=== PATIENT | female | born 1980 | race Caucasian/White ===

== ENCOUNTER → 2017-07-11 | Outpatient (CLI) | payer OTHER ==
[2017-07-11 09:08] LABS: ABSOLUTE EOSINOPHILS # (AUTO) 0.1 10^3/uL (0.0-0.6); ABSOLUTE LYMPHOCYTES (AUTO) 2.2 10^3/uL (0.5-4.7); ABSOLUTE MONOCYTES (AUTO) 0.6 10^3/uL (0.1-1.4); ABSOLUTE NEUT (AUTO) 3.9 10^3/uL (1.7-8.2); BASOPHILS % (AUTO) 0.3 % (0-2); EOSINOPHILS % (AUTO) 1.9 % (0-6); HEMATOCRIT 41.2 % (36.0-47.0); HEMOGLOBIN 14.4 g/dL (12.0-15.5); LYMPHOCYTES % (AUTO) 32.1 % (13-45); MEAN CORPUSCULAR HEMOGLOBIN 30.3 pg (27.0-33.4); MEAN CORPUSCULAR HGB CONC 34.9 g/dL (32.0-36.0); MEAN CORPUSCULAR VOLUME 87 fl (80-97); MONOCYTES % (AUTO) 8.4 % (3-13); RED BLOOD COUNT 4.74 10^6/uL (3.72-5.28); RED CELL DISTRIBUTION WIDTH 12.8 % (11.5-14.0); SEGMENTED NEUTROPHILS % (AUTO) 57.3 % (42-78); WHITE BLOOD COUNT 6.8 10^3/uL (4.0-10.5)
[2017-07-11 09:31] LABS: ALANINE AMINOTRANSFERASE 32 U/L (9-52); ALBUMIN 4.4 g/dL (3.5-5.0); ALKALINE PHOSPHATASE 66 U/L (38-126); ANION GAP 12 (5-19); ASPARTATE AMINO TRANSFERASE 26 U/L (14-36); BILIRUBIN,DIRECT 0.4 mg/dL (0.0-0.4); BILIRUBIN,TOTAL 0.5 mg/dL (0.2-1.3); BLOOD UREA NITROGEN 11 mg/dL (7-20); CALCIUM 10.1 mg/dL (8.4-10.2); CARBON DIOXIDE 27 mmol/L (22-30); CHLORIDE 99 mmol/L (98-107); CHOLESTEROL 179.23 mg/dL (0-200); CREATININE RESULT 0.74 mg/dL (0.52-1.25); Direct HDL 43 mg/dL (>40); GLUCOSE 100 mg/dL (75-110); POTASSIUM 3.9 mmol/L (3.6-5.0); SODIUM 137.9 mmol/L (137-145); TOTAL PROTEIN 7.3 g/dL (6.3-8.2); TRIGLYCERIDES 295 mg/dL (<150)
[2017-07-11 09:43] LABS: DIRECT LDL 102 mg/dL (<100)
== END ==
LOC: OD 08:08
DX: E11.8 Type 2 diabetes mellitus with unspecified complications (principal)
CPT/HCPCS: 36415; 80053; 80061; 83036; 84443; 85025

== ENCOUNTER → 2017-12-18 | Outpatient (CLI) | payer OTHER ==
[2017-12-18 11:25] LABS: ALANINE AMINOTRANSFERASE 38 U/L (9-52); ALBUMIN 4.6 g/dL (3.5-5.0); ALKALINE PHOSPHATASE 57 U/L (38-126); ANION GAP 10 (5-19); ASPARTATE AMINO TRANSFERASE 40 U/L (14-36); BILIRUBIN,DIRECT 0.2 mg/dL (0.0-0.4); BILIRUBIN,TOTAL 0.5 mg/dL (0.2-1.3); BLOOD UREA NITROGEN 10 mg/dL (7-20); CALCIUM 10.6 mg/dL (8.4-10.2); CARBON DIOXIDE 28 mmol/L (22-30); CHLORIDE 99 mmol/L (98-107); CHOLESTEROL 268.18 mg/dL (0-200); GLUCOSE 110 mg/dL (75-110); POTASSIUM 4.5 mmol/L (3.6-5.0); SODIUM 137.4 mmol/L (137-145); TOTAL PROTEIN 7.3 g/dL (6.3-8.2)
[2017-12-18 11:37] LABS: DIRECT LDL 124 mg/dL (<100)
[2017-12-18 11:47] LABS: TRIGLYCERIDES 634 mg/dL (<150)
== END ==
LOC: CCC 09:30
DX: E10.8 Type 1 diabetes mellitus with unspecified complications (principal)
CPT/HCPCS: 36415; 80053; 80061; 83036

== ENCOUNTER → 2018-02-14 | Outpatient (CLI) | payer OTHER ==
[2018-02-14 09:56] LABS: ABSOLUTE EOSINOPHILS # (AUTO) 0.1 10^3/uL (0.0-0.6); ABSOLUTE LYMPHOCYTES (AUTO) 2.6 10^3/uL (0.5-4.7); ABSOLUTE MONOCYTES (AUTO) 0.6 10^3/uL (0.1-1.4); ABSOLUTE NEUT (AUTO) 6.9 10^3/uL (1.7-8.2); BASOPHILS % (AUTO) 0.4 % (0-2); EOSINOPHILS % (AUTO) 1.3 % (0-6); HEMATOCRIT 41.5 % (36.0-47.0); HEMOGLOBIN 14.3 g/dL (12.0-15.5); LYMPHOCYTES % (AUTO) 25.5 % (13-45); MEAN CORPUSCULAR HEMOGLOBIN 30.1 pg (27.0-33.4); MEAN CORPUSCULAR HGB CONC 34.3 g/dL (32.0-36.0); MEAN CORPUSCULAR VOLUME 88 fl (80-97); MONOCYTES % (AUTO) 6.2 % (3-13); PLATELET COUNT 342 10^3/uL (150-450); RED BLOOD COUNT 4.73 10^6/uL (3.72-5.28); RED CELL DISTRIBUTION WIDTH 12.8 % (11.5-14.0); SEGMENTED NEUTROPHILS % (AUTO) 66.6 % (42-78); TOTAL CELLS COUNTED % (AUTO) 100 %; WHITE BLOOD COUNT 10.3 10^3/uL (4.0-10.5)
[2018-02-14 10:24] LABS: CALCIUM 10.3 mg/dL (8.4-10.2); CHOLESTEROL 136.63 mg/dL (0-200); TRIGLYCERIDES 242 mg/dL (<150)
[2018-02-14 10:35] LABS: DIRECT LDL 67 mg/dL (<100)
[2018-02-14 10:40] LABS: VLDL CHOLESTEROL 48.4 mg/dL (10-31)
== END ==
LOC: CCC 09:14
DX: E83.52 Hypercalcemia (principal); E11.8 Type 2 diabetes mellitus with unspecified complications; E78.5 Hyperlipidemia, unspecified
CPT/HCPCS: 36415; 80061; 82310; 83036; 83735; 84100; 84443; 85025

== ENCOUNTER → 2018-03-13 | Outpatient (CLI) | payer OTHER ==
[2018-03-13 16:46] LABS: FREE T3 3.31 pg/mL (2.77-5.27); FREE T4 (FREE THYROXINE) 0.88 ng/dL (0.78-2.19)
[2018-03-13 16:59] LABS: THYROID STIMULATING HORMONE 1.07 uIU/mL (0.47-4.68)
== END ==
LOC: OD 14:33
DX: E03.9 Hypothyroidism, unspecified (principal); M25.50 Pain in unspecified joint
CPT/HCPCS: 36415; 82550; 84436; 84439; 84443; 84481

== ENCOUNTER → 2018-06-01 | Outpatient (CLI) | payer OTHER | LOC: OD 08:48 | DX: E11.8 Type 2 diabetes mellitus with unspecified complications (principal) | CPT/HCPCS: 36415; 83036 ==

== ENCOUNTER → 2018-10-23 | Outpatient (CLI) | payer OTHER ==
--- NOTE | 2018-10-23 12:47 | RADIOLOGY REPORT (SQ) ---
EXAM DESCRIPTION: FOOT LEFT COMPLETE COMPLETED DATE/TIME: 10/23/2018 12:01 pm REASON FOR STUDY: PAIN IN LEFT TOE; NO TRAUMA E11.8 TYPE 2 DIABETES MELLITUS WITH UNSPECIFIED COMPL ICATION M79.675 PAIN IN LEFT TOE(S) COMPARISON: None. NUMBER OF VIEWS: Three views. TECHNIQUE: AP, lateral and oblique radiographic images acquired of the left foot. LIMITATIONS: None. FINDINGS: MINERALIZATION: Normal. BONES: No acute fracture or dislocation. No worrisome bone lesions. JOINTS: No effusions. SOFT TISSUES: No soft tissue swelling. No foreign body. OTHER: No other significant finding. IMPRESSION: 1. NEGATIVE STUDY OF THE LEFT FOOT. TECHNICAL DOCUMENTATION: JOB ID: [id number] [employer]- All Rights Reserved Reading location - IP/workstation name: [email or web address]
[2018-10-23 12:58] LABS: ANION GAP 14 (5-19); BLOOD UREA NITROGEN 8 mg/dL (7-20); CARBON DIOXIDE 22 mmol/L (22-30); CHLORIDE 104 mmol/L (98-107); GLUCOSE 149 mg/dL (75-110); POTASSIUM 4.5 mmol/L (3.6-5.0); URIC ACID 4.5 mg/dL (2.5-7.0)
[2018-10-23 14:01] LABS: FOLATE 8.53 ng/mL (>2.76)
== END ==
LOC: CCC 11:35
DX: E11.8 Type 2 diabetes mellitus with unspecified complications (principal); M79.675 Pain in left toe(s)
CPT/HCPCS: 36415; 80048; 82607; 82746; 83036; 84550

== ENCOUNTER → 2018-11-15 | Outpatient (CLI) | payer OTHER ==
[2018-11-15 10:42] LABS: ABSOLUTE EOSINOPHILS # (AUTO) 0.2 10^3/uL (0.0-0.6); ABSOLUTE LYMPHOCYTES (AUTO) 2.6 10^3/uL (0.5-4.7); ABSOLUTE MONOCYTES (AUTO) 0.6 10^3/uL (0.1-1.4); ABSOLUTE NEUT (AUTO) 6.3 10^3/uL (1.7-8.2); BASOPHILS % (AUTO) 0.4 % (0-2); EOSINOPHILS % (AUTO) 2.2 % (0-6); HEMATOCRIT 40.2 % (36.0-47.0); HEMOGLOBIN 13.9 g/dL (12.0-15.5); LYMPHOCYTES % (AUTO) 26.8 % (13-45); MEAN CORPUSCULAR HEMOGLOBIN 29.6 pg (27.0-33.4); MEAN CORPUSCULAR HGB CONC 34.6 g/dL (32.0-36.0); MEAN CORPUSCULAR VOLUME 86 fl (80-97); MONOCYTES % (AUTO) 6.5 % (3-13); PLATELET COUNT 359 10^3/uL (150-450); RED CELL DISTRIBUTION WIDTH 12.7 % (11.5-14.0); SEGMENTED NEUTROPHILS % (AUTO) 64.1 % (42-78); TOTAL CELLS COUNTED % (AUTO) 100 %; WHITE BLOOD COUNT 9.9 10^3/uL (4.0-10.5)
[2018-11-15 11:26] LABS: ERYTHROCYTE SEDIMENTATION RATE 11 mm/hr (0-20)
[2018-11-17 07:56] LABS: CYCLIC CITRUL PEPTIDE IGG/A AB 8 units (0-19)
== END ==
LOC: CCC 10:03
DX: M26.621 Arthralgia of right temporomandibular joint (principal)
CPT/HCPCS: 36415; 85025; 85652; 86038; 86140; 86200; 86225; 86430

== ENCOUNTER → 2019-01-18 | Outpatient (CLI) | payer OTHER ==
--- NOTE | 2019-01-18 13:42 | RADIOLOGY REPORT (SQ) ---
EXAM DESCRIPTION: HIP LEFT AP/LATERAL COMPLETED DATE/TIME: 01/18/2019 1:34 pm REASON FOR STUDY: R05 COUGH M25.50 PAIN IN UNSPECIFIED JOINT M25.50 PAIN IN UNSPECIFIED JOINT R05 COUGH COMPARISON: None. NUMBER OF VIEWS: Two views. TECHNIQUE: AP pelvis and additional frog-leg view of the left hip. LIMITATIONS: None. FINDINGS: MINERALIZATION: Normal. LEFT HIP: No fracture or dislocation. No worrisome bone lesions. No significant joint space narrowi ng. Minimal calcifications/ossification along the acetabular labrum. RIGHT HIP: No fracture or dislocation. No worrisome bone lesions. PUBIS AND ISCHIUM: No fracture. PELVIS: No fracture. SACRUM: No fracture or dislocation. No worrisome bone lesions. LOWER LUMBAR SPINE: No fracture or dislocation. No worrisome bone lesions. No significant disc disea se. SOFT TISSUES: No findings. OTHER: No other significant finding. IMPRESSION: No acute findings. TECHNICAL DOCUMENTATION: JOB ID: [id number] [employer]- All Rights Reserved Reading location - IP/workstation name: [email or web address]
--- NOTE | 2019-01-18 13:42 | RADIOLOGY REPORT (SQ) ---
EXAM DESCRIPTION: CHEST 2 VIEWS COMPLETED DATE/TIME: 01/18/2019 1:34 pm REASON FOR STUDY: R05 COUGH COMPARISON: AP chest 03/05/2016 EXAM PARAMETERS: NUMBER OF VIEWS: two views TECHNIQUE: Digital Frontal and Lateral radiographic views of the chest acquired. RADIATION DOSE: NA LIMITATIONS: none FINDINGS: LUNGS AND PLEURA: No opacities, masses or pneumothorax. No pleural effusion. MEDIASTINUM AND HILAR STRUCTURES: No masses or contour abnormalities. HEART AND VASCULAR STRUCTURES: Heart normal size. No evidence for failure. BONES: No acute findings. HARDWARE: None in the chest. OTHER: No other significant finding. IMPRESSION: NO ACUTE RADIOGRAPHIC FINDING IN THE CHEST. TECHNICAL DOCUMENTATION: JOB ID: [id number] [employer]- All Rights Reserved Reading location - IP/workstation name: [email or web address]
== END ==
LOC: EDBD 13:08 → RAD 13:08
DX: M25.50 Pain in unspecified joint (principal); R05 Cough; Z72.0 Tobacco use; E11.9 Type 2 diabetes mellitus without complications
CPT/HCPCS: 71046

== ENCOUNTER 2019-01-22 08:50 | Emergency (ER) | payer SELFPAY ==
[2019-01-22] MEDS ORDERED: KETOROLAC TROMETHAMINE INJ/PF 30 MG/1 ML SDV IM ONE (09:43)
--- NOTE | 2019-01-22 09:47 | ER Document Report ---
HPI - HPI Time Seen by Provider: 01/22/19 09:32 Pain Level: 5 Notes: Patient is a 38-year-old female with no significant past medical history who presents to the ED complaining of left lower back pain x3-4 weeks and left upper buttock pain without obvious injury. Patient states that she does bend at the waist a lot for her job. Movement helps. Rising from sitting position worsens. Patient states that bending twisting of the trunk make the pains worse as well. Pain will occ radiate from the left low back to the buttock. She is eating and drinking without any difficulties. She is urinating normally and having normal bowel movements. She has not had any injections or procedures to his lower back. Denies any IV drug abuse. No other concerns or complaints. Denies any headache, fever, head injury, neck pain, changes in vision/speech/mentation/hearing, URI, sore throat, chest pain, palpitations, syncope, cough, shortness of breath, wheeze, dyspnea, abdominal pain, nausea/vomiting/diarrhea, urinary retention, dysuria, hematuria, loss of control of bowel or bladder, numbness/tingling, saddle anesthesia, muscle paralysis/weakness, or rash. - ROS Systems Reviewed and Negative: Yes All other systems reviewed and negative - REPRODUCTIVE Reproductive: DENIES: : Past Medical History - Social History Smoking Status: Current Every Day Smoker Family History: Arthritis, CAD, COPD, CVA, DM, Hyperlipidemia, Hypertension, Malignancy, Thyroid Disfunction, Other - Parents with cardiac issues. Patient has suicidal ideation: No Patient has homicidal ideation: No - Past Medical History Cardiac Medical History: Reports: Hx Hypertension Denies: Hx Heart Attack Pulmonary Medical History: Denies: Hx Asthma, Hx Bronchitis, Hx COPD, Hx Pneumonia, Hx Tuberculosis Neurological Medical History: Reports: Hx Migraine. Denies: Hx Seizures Endocrine Medical History: Reports: Hx Diabetes Mellitus Type 2 Renal/ Medical History: Reports: Hx Ectopic , Hx Kidney Stones, Hx Ovarian Cysts. Denies: Hx Peritoneal Dialysis GI Medical History: Reports: Hx Colonoscopy Musculoskeletal Medical History: Reports Hx Arthritis, Reports Hx Musculoskeletal Trauma Psychiatric Medical History: Reports: Hx Anxiety Past Surgical History: Reports: Hx Section, Hx Oral Surgery - wisdom teeth, Hx Tubal Ligation. Denies: Hx Hysterectomy - Immunizations Immunizations up to date: Yes Hx Diphtheria, Pertussis, Tetanus Vaccination: Yes Vertical Provider Document - CONSTITUTIONAL Agree With Documented VS: Yes Notes: PHYSICAL EXAMINATION: GENERAL: Well-appearing, well-nourished and in no acute distress. LUNGS: Breath sounds clear to auscultation bilaterally and equal. No wheezes rales or rhonchi. HEART: Regular rate and rhythm without murmurs, rubs, gallops. ABDOMEN: Soft, nontender, nondistended abdomen. No guarding, no rebound. Normal bowel sounds present. No CVA tenderness bilaterally. No pulsatile mass Musculoskeletal: LE's b/l: FROM to passive/active. Strength 5+/5. No deficits noted. No bony tenderness of extremities. Back: FROM to passive/active. Strength 5+/5. No vertebral point tenderness, stepoffs, or deformities. No other bony tenderness, erythema, swelling, or ecchymosis. SLR negative b/l. + mild tenderness to the left L-paraspinal mm. Mild spasming. + left SI jt tenderness. No foot drop Extremities: No cyanosis, clubbing, or edema b/l. Peripheral pulses 2+. Capillary refill less than 2 seconds. NEUROLOGICAL: Normal speech, normal gait. Normal sensory, motor exams. Reflexes 2+ b/l. PSYCH: Normal mood, normal affect. SKIN: Warm, Dry, normal turgor, no rashes or lesions noted. - INFECTION CONTROL TRAVEL OUTSIDE OF THE [place] IN LAST 30 DAYS: No Course - Re-evaluation Re-evalutation: 01/22/19 09:45 Patient is an afebrile, well-hydrated, 38-year-old female who presents to the ED with left low back pain and lt buttock pain, suspect SI. Vitals are acceptable. PE is otherwise unremarkable for any focal neurological deficits. X-ray was unremarkable for any acute pathology of the left hip performed a few days ago by her PCM. Patient was given Toradol. She has no significant tachycardia, tachypnea, or hypoxia. She is nontoxic-appearing and is tolerating p.o. without difficulties. There are no signs of infection. No other red flag symptoms noted. No other labs or imaging warranted at this time based on H&P. Low suspicion for any meningitis, fracture, expanding/ruptured AAA, cauda equina syndrome, epidural mass lesion/abscess, herniated disc causing severe spinal stenosis, or other systemic infection at this time. Patient is aware that this condition can change from initial presentation and that she needs monitor symptoms closely for any acute changes. I will send her home with a prescription for flexeril. Conservative measures otherwise for symptoms. Recheck with your PCM in 3-5 days. Consider consult with orthopedic/physical therapy. Return to the ED with any worsening/concerning symptoms otherwise as reviewed discharge. Patient is in agreement. - Vital Signs Vital signs: Temp Pulse Resp BP Pulse Ox 99.3 F 99 18 139/92 H 98 01/22/19 09:03 01/22/19 09:03 01/22/19 09:03 01/22/19 09:03 01/22/19 09:03 Discharge - Discharge Clinical Impression: Pain of left sacroiliac joint Low back pain Qualifiers: Chronicity: acute Back pain laterality: left Sciatica presence: without sciatica Qualified Code(s): M54.5 - Low back pain Condition: Stable Disposition: HOME, SELF-CARE Instructions: Low Back Pain ([facility]), Stretching Exercises for the Back ([facility]) Additional Instructions: Rest, Ice Tylenol/ibuprofen as needed Light stretches daily Strength exercises as able Moist heat and massage may help F/u with your PCP in 3-5 days for a recheck Consider consult(s) with Orthopedics/physical therapy for ongoing/worsening symptoms Return to the ED with any worsening symptoms and/or development of fever, headache, chest pain, palpitations, syncope, shortness of breath, trouble breathing, abdominal pain, n/v/d, blood in stool/urine, loss of control of bowel/bladder, urinary retention, muscle weakness/paralysis, saddle anesthesia, numbness/tingling, or other worsening symptoms that are concerning to you. Prescriptions: Cyclobenzaprine HCl [Flexeril 10 mg Tablet] 10 mg PO TIDP PRN #15 tab PRN Reason: Forms: Elevated Blood Pressure, Smoking Cessation Education Referrals: [facility] [Primary Care Provider] - Follow up as needed [facility] [Provider Group] - Follow up as needed
[2019-01-22 10:28] VITALS: BP 133/85
== END 2019-01-22 10:25 | disposition home or self-care (01) ==
LOC: ER 08:50
DX: M53.3 Sacrococcygeal disorders, not elsewhere classified (principal); M54.5 Low back pain; F17.200 Nicotine dependence, unspecified, uncomplicated; X50.1XXA Overexertion from prolonged static or awkward postures, initial encounter; Y99.0 Civilian activity done for income or pay; I10 Essential (primary) hypertension
CPT/HCPCS: 99283; 96372; J1885

== ENCOUNTER 2019-02-18 01:15 | Emergency (ER) | payer OTHER ==
[2019-02-18] MEDS ORDERED: ASPIRIN 81 MG TABLET, CHEWABLE PO ONE (03:05)
[2019-02-18 03:41] LABS: ABSOLUTE EOSINOPHILS # (AUTO) 0.2 10^3/uL (0.0-0.6); ABSOLUTE MONOCYTES (AUTO) 0.6 10^3/uL (0.1-1.4); ABSOLUTE NEUT (AUTO) 5.2 10^3/uL (1.7-8.2); BASOPHILS % (AUTO) 0.5 % (0-2); HEMATOCRIT 38.1 % (36.0-47.0); HEMOGLOBIN 13.3 g/dL (12.0-15.5); LYMPHOCYTES % (AUTO) 24.6 % (13-45); MEAN CORPUSCULAR HEMOGLOBIN 29.7 pg (27.0-33.4); MEAN CORPUSCULAR VOLUME 85 fl (80-97); MONOCYTES % (AUTO) 7.4 % (3-13); PLATELET COUNT 324 10^3/uL (150-450); RED BLOOD COUNT 4.48 10^6/uL (3.72-5.28); RED CELL DISTRIBUTION WIDTH 13.2 % (11.5-14.0); SEGMENTED NEUTROPHILS % (AUTO) 65.5 % (42-78); TOTAL CELLS COUNTED % (AUTO) 100 %
[2019-02-18 03:43] LABS: INTERNATIONAL RATION (INR) 0.86; PROTHROMBIN TIME 12.2 SEC (11.4-15.4)
--- NOTE | 2019-02-18 04:01 | RADIOLOGY REPORT (SQ) ---
EXAM DESCRIPTION: XR CHEST 1 VIEW COMPLETED DATE/TME: 02/18/2019 03:05 CLINICAL HISTORY: 38 years, Female, CP Comparison: None FINDINGS: No focal lung consolidation. No pleural effusion. No pneumothorax. Cardiac and mediastinal silhouette is unremarkable. No acute osseous abnormality. Soft tissues are unremarkable. IMPRESSION: No acute findings. No focal lung consolidation.
[2019-02-18 04:05] LABS: ALANINE AMINOTRANSFERASE 24 U/L (9-52); ALBUMIN 4.1 g/dL (3.5-5.0); ALKALINE PHOSPHATASE 57 U/L (38-126); ANION GAP 12 (5-19); ASPARTATE AMINO TRANSFERASE 25 U/L (14-36); BILIRUBIN,DIRECT 0.3 mg/dL (0.0-0.4); BILIRUBIN,TOTAL 0.3 mg/dL (0.2-1.3); BLOOD UREA NITROGEN 13 mg/dL (7-20); CARBON DIOXIDE 24 mmol/L (22-30); CHLORIDE 103 mmol/L (98-107); CREATINE KINASE 145 U/L (30-135); GLUCOSE 194 mg/dL (75-110); POTASSIUM 3.8 mmol/L (3.6-5.0); SODIUM 139.4 mmol/L (137-145); TOTAL PROTEIN 6.7 g/dL (6.3-8.2)
[2019-02-18 04:16] LABS: CREATINE KINASE MB 0.99 ng/mL (<4.55)
[2019-02-18 04:17] LABS: TROPONIN I < 0.012 ng/mL
--- NOTE | 2019-02-18 07:00 | EKG REPORT ---
SEVERITY:- NORMAL ECG - SINUS RHYTHM : Confirmed by: Jan Duncan 18-Feb-2019 07:00:33
--- NOTE | 2019-02-18 07:08 | ER Document Report ---
ED General - General Chief Complaint: Chest Pain Stated Complaint: CHEST PAIN Time Seen by Provider: 02/18/19 03:04 Primary Care Provider: JEANNINE DEXTER MD [Primary Care Provider] - Follow up as needed Notes: Patient is a 38-year-old female presents to the emergency department for pain in the center of her chest radiating to her left jaw and left shoulder. Patient states she awoke this evening to use the restroom when she was walking back to bed she noted sharp pain in the center of her chest and radiating to her left jaw and left shoulder. Patient states she was very concerned which is why she presents to the emergency room. Patient currently states that the pain is gone. Patient states she has had a generalized cough and congestion but is denying that the pain is increased upon deep palpation or deep inspiration. Past medical history: Diabetes, hypertension, hyperlipidemia Medications: Metformin, glipizide, atorvastatin, metoprolol, losartan, HCTZ, tramadol, naproxen, gabapentin Allergies: Sulfa, codeine Surgical history: Tubal ligation TRAVEL OUTSIDE OF THE [place] IN LAST 30 DAYS: No - Related Data Allergies/Adverse Reactions: codeine [Codeine] Allergy (Verified 01/22/19 08:53) Sulfa (Sulfonamide Antibiotics) Allergy (Verified 01/22/19 08:53) Past Medical History - General Information source: Patient - Social History Smoking Status: Current Every Day Smoker Family History: Arthritis, CAD, COPD, CVA, DM, Hyperlipidemia, Hypertension, Malignancy, Thyroid Disfunction, Other - Parents with cardiac issues. Patient has suicidal ideation: No Patient has homicidal ideation: No - Past Medical History Cardiac Medical History: Reports: Hx Hypertension Denies: Hx Heart Attack Pulmonary Medical History: Denies: Hx Asthma, Hx Bronchitis, Hx COPD, Hx Pneumonia, Hx Tuberculosis Neurological Medical History: Reports: Hx Migraine. Denies: Hx Seizures Endocrine Medical History: Reports: Hx Diabetes Mellitus Type 2 Renal/ Medical History: Reports: Hx Ectopic , Hx Kidney Stones, Hx Ovarian Cysts. Denies: Hx Peritoneal Dialysis GI Medical History: Reports: Hx Colonoscopy Musculoskeletal Medical History: Reports Hx Arthritis, Reports Hx Musculoskeletal Trauma Psychiatric Medical History: Reports: Hx Anxiety Past Surgical History: Reports: Hx Section, Hx Oral Surgery - wisdom teeth, Hx Tubal Ligation. Denies: Hx Hysterectomy - Immunizations Immunizations up to date: Yes Hx Diphtheria, Pertussis, Tetanus Vaccination: Yes Review of Systems - Review of Systems Constitutional: No symptoms reported EENT: No symptoms reported Cardiovascular: See HPI Respiratory: No symptoms reported Gastrointestinal: No symptoms reported Genitourinary: No symptoms reported Female Genitourinary: No symptoms reported Musculoskeletal: No symptoms reported Skin: No symptoms reported Hematologic/Lymphatic: No symptoms reported Neurological/Psychological: No symptoms reported Physical Exam - Vital signs Vitals: Temp Pulse Resp BP Pulse Ox 98.6 F 85 16 146/86 H 97 02/18/19 01:02/18/19 01:02/18/19 01:02/18/19 01:02/18/19 01:31 - Notes Notes: GENERAL: Alert, interacts well. No acute distress. HEAD: Normocephalic, atraumatic. EYES: Pupils equal, round, and reactive to light. Extraocular movements intact. ENT: Oral mucosa moist, tongue midline. NECK: Full range of motion. Supple. Trachea midline. LUNGS: Clear to auscultation bilaterally, no wheezes, rales, or rhonchi. No respiratory distress. Chest: No crepitus felt, no erythema or ecchymosis noted anterior posterior chest wall. HEART: Regular rate and rhythm. No murmur ABDOMEN: Soft, non-tender. Non-distended. Bowel sounds present in all 4 quadrants. EXTREMITIES: Moves all 4 extremities spontaneously. No edema, normal radial and dorsalis pedis pulses bilaterally. No cyanosis. BACK: no cervical, thoracic, lumbar midline tenderness. No saddle anesthesia, normal distal neurovascular exam. NEUROLOGICAL: Alert and oriented x3. Normal speech. cranial nerves II through XII grossly intact PSYCH: Normal affect, normal mood. SKIN: Warm, dry, normal turgor. No rashes or lesions noted. Course - Re-evaluation Re-evalutation: Initially patient is denying that her chest pain increases on deep inspiration or palpation. Upon reexamination after initial blood work patient states "now that I think about it when you touched it, it did make my chest hurt more." Upon reexamination patient continues without crepitus, erythema, ecchymosis no lucian anterior posterior chest wall but now stating that the pain is reproducible on deep palpation in the center of her chest. Patient states without deep palpation or deep inspiration she has no pain to include in her left arm or left shoulder. Patient CBC is within normal limits, no signs of electrolyte abnormalities, patient has had negative delta troponins. Patient's EKG shows a sinus rhythm at a rate of 83, QTc 480, no signs of ST segment elevations or depressions noted. Patient's chest x-ray reveals no signs of pneumonia, pneumothorax, rib fracture. Patient's initial heart score was calculated to be 3 now that her pain is reproducible upon deep palpation and inspiration I believe this to be muscular skeletal in nature. Patient has remained chest pain-free the entire duration of her stay in the emergency department. Discussed close follow-up with primary care provider and cardiology. Patient voices understanding. - Vital Signs Vital signs: Temp Pulse Resp BP Pulse Ox 98.4 F 85 19 118/71 96 02/18/19 06:00 02/18/19 01:31 02/18/19 06:04 02/18/19 06:04 02/18/19 06:04 - Laboratory Result Diagrams: 02/18/19 03:26 02/18/19 03:26 Laboratory results interpreted by me: 02/18/19 03:26 Glucose 194 H Creatine Kinase 145 H Discharge - Discharge Clinical Impression: Chest wall pain Condition: Stable Disposition: HOME, SELF-CARE Instructions: Chest Pain of Unclear Cause ([facility]), Chest Wall Pain ([facility]) Additional Instructions: As we discussed you have been seen and treated in the emergency department for your chest pain. Your workup is negative. Due to your chest pain increasing upon deep palpation and inspiration I feel as though this could be musculosk eletal in nature. Please make sure you follow-up with your primary care provider in the next 24-48 hours. I have also provided phone numbers for cardiology for continued care. Please return to the emergency room should your chest pain return or have any other concerning symptoms. Forms: Return to Work Referrals: JEANNINE DEXTER MD [Primary Care Provider] - Follow up as needed JOSE ARMANDO TOLEDO MD [ACTIVE STAFF] - Follow up as needed
[2019-02-18 07:15] VITALS: BP 119/64
== END 2019-02-18 07:17 | disposition home or self-care (01) ==
LOC: ER 01:15
DX: R07.89 Other chest pain (principal); R68.84 Jaw pain; M25.512 Pain in left shoulder; R05 Cough; E78.5 Hyperlipidemia, unspecified; I10 Essential (primary) hypertension; M19.90 Unspecified osteoarthritis, unspecified site; E11.9 Type 2 diabetes mellitus without complications; Z79.84 Long term (current) use of oral hypoglycemic drugs; Z79.899 Other long term (current) drug therapy; Z79.891 Long term (current) use of opiate analgesic; Z79.1 Long term (current) use of non-steroidal anti-inflammatories (NSAID); Z88.2 Allergy status to sulfonamides; Z88.5 Allergy status to narcotic agent
CPT/HCPCS: 36415; 71045; 80053; 82550; 82553; 84484; 85025; 85610; 93005; 93010; 99284

== ENCOUNTER → 2019-02-25 | Outpatient (CLI) | payer OTHER ==
[2019-02-25 17:17] LABS: INTERNATIONAL RATION (INR) 0.91; PROTHROMBIN TIME 12.7 SEC (11.4-15.4)
[2019-02-25 17:18] LABS: PARTIAL THROMBOPLASTIN TIME 28.5 SEC (23.5-35.8)
== END ==
LOC: CCC 15:03
DX: N92.0 Excessive and frequent menstruation with regular cycle (principal)
CPT/HCPCS: 36415; 85610; 85730

== ENCOUNTER → 2019-03-05 | Outpatient (CLI) | payer OTHER ==
[~2019-03-05] MED LIST: REGADENOSON INJ 0.4 MG/5 ML DISP.SYRIN IV ONE
--- NOTE | 2019-03-06 12:29 | RADIOLOGY REPORT ---
STRESS TEST REPORT PATIENT NAME: TERI HOBBS ROOM#: DATE OF SERVICE: 03/05/2019 AGE: 39Y ORDER#: [id number] REFERRING MD: PROCEDURE PERFORMED: Rest/stress single-isotope Cardiolite SPECT imaging with IV Lexiscan stress and gated SPECT imaging. INDICATION: For assessment of chest pains. CLINICAL HISTORY: This is a 39-year-old female with no known coronary artery disease but has 4 significant coronary artery risk factors, now presenting with chest pains. SUMMARY OF FINDINGS/IMPRESSION: The patient received IV Lexiscan 0.4 mg infused over 10 seconds. The resting heart rate was 85 bpm and increased to 121 bpm at the end of infusion. The resting blood pressure was 137/84 and increased to 161/79 at end infusion. The patient had symptoms of chest tightness, feeling hot, and nauseous. The resting 12-lead EKG showed normal sinus rhythm at 85 bpm with nonspecific inferior ST changes in leads II, III, aVF and lateral wall V4 to V6. At the end of infusion no further ST changes were noted. Myocardial perfusion imaging was performed at rest, 60 minutes following the injection of 12.71 mCi of Cardiolite. Ten seconds after the IV Lexiscan injection the patient was then injected with 36.1 mCi of Cardiolite and flushed. Gated post-stress tomographic imaging was performed 60 minutes after stress. FINDINGS: The overall quality of the study is fair. The left ventricular cavity is noted to be normal in size on both the rest and stress studies. There is no evidence of abnormal transient ischemic dilatation of the left ventricle. SPECT images showed no evidence of IV Lexiscan-induced reversible ischemia and no fixed perfusion defect. Gated SPECT imaging showed normal motion contraction of all LV segments. The left ventricular ejection fraction was calculated to be 52%. The TID ratio was 1.05. IMPRESSION: Myocardial perfusion imaging is normal. There is no evidence of any IV Lexiscan-induced reversible ischemia. There is no evidence of any fixed perfusion defect. Overall left ventricular systolic function was normal at 52%, and there were no regional wall motion abnormalities seen. No prior studies for comparison. INTERPRETING PHYSICIAN: SHIRAZ GAMBOA M.D. /: [id number] TT: 1157 ID: [id number] /: [id number] TD: 56 JOB: [id number] cc:SHIRAZ GAMBOA M.D. [facility], > MTDD
== END ==
LOC: RAD 06:00
DX: R07.9 Chest pain, unspecified (principal); I10 Essential (primary) hypertension; E78.5 Hyperlipidemia, unspecified; E11.9 Type 2 diabetes mellitus without complications
CPT/HCPCS: 93017; 78452; A9500; J2785; Q9969

== ENCOUNTER → 2019-03-06 | Outpatient (CLI) | payer OTHER ==
--- NOTE | 2019-03-06 17:53 | XCELERA REPORT ---
[address] [address] Transthoracic Echocardiogram Report Name: TERI HOBBS Age: 39 yrs Gender: Female : 1980 Patient Status: Outpatient Patient Location: Study Date: 03/06/2019 02:13 PM Height: 65 in Weight: 185 lb BSA: 1.9 m2 Procedure: A complete two-dimensional transthoracic echocardiogram was performed (2D, M-mode, spectral and color flow Doppler). The study was technically adequate with some images being suboptimal in quality. Reason For Study: CP Ordering Physician: [facility] Performed By: James Aguilar Interpretation Summary The left ventricular ejection fraction is normal. There is mild concentric left ventricular hypertrophy. The left ventricle is grossly normal size. Doppler measurements suggest pseudonormalized left ventricular relaxation, which is associated with grade II/IV or mild to moderate diastolic dysfunction Wall motion cannot be accurately commented on, but no definite regional wall motion abnormalities noted. The right ventricular systolic function is normal. Borderline left atrial enlargement. The right atrium is normal. There is a trace to mild amount of mitral regurgitation There is no mitral valve stenosis. No aortic regurgitation is present. There is no aortic valve stenosis There is no tricuspid stenosis. There is a trace or physiologic amount of tricuspid regurgitation The aortic root is not well visualized but is probably normal size. The inferior vena cava appeared normal and decreased < 50% with respiration (RAP 10-15 mmHg) Minimal pericardial effusion. MMode/2D Measurements & Calculations RVDd: 2.3 cm LVIDd: 5.1 cm FS: 33.2 % Ao root diam: 2.8 cm IVSd: 0.95 cm LVIDs: 3.4 cm EDV(Teich): 125.4 ml Ao root area: 6.3 cm2 LVPWd: 0.86 cm ESV(Teich): 48.3 ml LA dimension: 3.6 cm EF(Teich): 61.5 % Doppler Measurements & Calculations MV E max jose: MV P1/2t max jose: Ao V2 max: LV V1 max P.6 cm/sec 81.4 cm/sec 97.2 cm/sec 2.5 mmHg MV A max ojse: MV P1/2t: 56.5 msec Ao max P.8 mmHg LV V1 max: 43.9 cm/sec MVA(P1/2t): 3.9 cm2 78.5 cm/sec MV E/A: 1.6 MV dec slope: LV dP/dt: 9088 mmHg/s 422.3 cm/sec2 MV dec time: 0.25 sec PA V2 max: TR max jose: MV P1/2t-pr_phl: 75.2 cm/sec 252.5 cm/sec 56.5 msec PA max P.3 mmHgTR max P.5 mmHg Left Ventricle The left ventricle is grossly normal size. There is mild concentric left ventricular hypertrophy. The left ventricular ejection fraction is normal. Doppler measurements suggest pseudonormalized left ventricular relaxation, which is associated with grade II/IV or mild to moderate diastolic dysfunction. Wall motion cannot be accurately commented on, but no definite regional wall motion abnormalities noted. Right Ventricle The right ventricle is grossly normal size. There is normal right ventricular wall thickness. The right ventricular systolic function is normal. Atria The right atrium is normal. Borderline left atrial enlargement. Interarterial septum not well visualized and not well dopplered. Cannot comment on ASD/PFO presence. Mitral Valve The mitral valve is grossly normal. There is no mitral valve stenosis. There is a trace to mild amount of mitral regurgitation. Aortic Valve The aortic valve is grossly normal. There is no aortic valve stenosis. No aortic regurgitation is present. Tricuspid Valve The tricuspid valve is not well visualized, but is grossly normal. There is no tricuspid stenosis. There is a trace or physiologic amount of tricuspid regurgitation. Pulmonic Valve The pulmonic valve is not well visualized. Great Vessels The aortic root is not well visualized but is probably normal size. The inferior vena cava appeared normal and decreased < 50% with respiration (RAP 10-15 mmHg). Effusions Minimal pericardial effusion. : [facility] > Jan Duncan
== END ==
LOC: SP 13:57
DX: R07.9 Chest pain, unspecified (principal)
CPT/HCPCS: 93306

== ENCOUNTER → 2019-03-20 | Outpatient (CLI) | payer OTHER ==
[2019-03-20 11:07] LABS: CHOLESTEROL 122.13 mg/dL (0-200); TRIGLYCERIDES 245 mg/dL (<150)
[2019-03-20 11:18] LABS: DIRECT LDL 60 mg/dL (<100)
== END ==
LOC: CCC 09:05
DX: E78.5 Hyperlipidemia, unspecified (principal)
CPT/HCPCS: 36415; 80061

== ENCOUNTER 2019-04-02 20:01 | Emergency (ER) | payer OTHER ==
[2019-04-02] MEDS ORDERED: OXYCODONE-ACETAMINOPHEN 5-325 MG TABLET PO ONE (22:26)
[2019-04-02] MEDS ORDERED: ONDANSETRON 4 MG TAB.RAPDIS PO ONE (22:26)
[2019-04-02] MEDS ORDERED: NORMAL SALINE 1000 ML 1,000 ML IV ONE (22:27)
--- NOTE | 2019-04-02 22:29 | ER Document Report ---
ED Medical Screen (RME) - General Chief Complaint: Chest Pain Stated Complaint: CHEST PAIN Time Seen by Provider: 04/02/19 22:26 [facility]: [facility] [Primary Care Provider] - Follow up as needed Notes: 39-year-old female chief complaint of pain in the epigastric area (she points), fever of 101 at home, and multiple episodes of vomiting today. Denies diarrhea, flank pain, chest pain, shortness of breath. Denies abdominal surgeries. TRAVEL OUTSIDE OF THE [place] IN LAST 30 DAYS: No - Related Data Allergies/Adverse Reactions: codeine [Codeine] Allergy (Verified 01/22/19 08:53) Sulfa (Sulfonamide Antibiotics) Allergy (Verified 01/22/19 08:53) Past Medical History - Social History Frequency of alcohol use: None - Past Medical History Cardiac Medical History: Reports: Hx Hypertension Denies: Hx Heart Attack Pulmonary Medical History: Denies: Hx Asthma, Hx Bronchitis, Hx COPD, Hx Pneumonia, Hx Tuberculosis Neurological Medical History: Reports: Hx Migraine. Denies: Hx Seizures Endocrine Medical History: Reports: Hx Diabetes Mellitus Type 2 Renal/ Medical History: Reports: Hx Ectopic , Hx Kidney Stones, Hx Ovarian Cysts. Denies: Hx Peritoneal Dialysis GI Medical History: Reports: Hx Colonoscopy Musculoskeltal Medical History: Reports Hx Arthritis, Reports Hx Musculoskeletal Trauma Psychiatric Medical History: Reports: Hx Anxiety Past Surgical History: Reports: Hx Section, Hx Oral Surgery - wisdom teeth, Hx Tubal Ligation. Denies: Hx Hysterectomy - Immunizations Immunizations up to date: Yes Hx Diphtheria, Pertussis, Tetanus Vaccination: Yes Physical Exam - Vital signs Vitals: Temp Pulse Resp BP Pulse Ox 98.9 F 79 20 135/90 H 97 04/02/19 21:09 04/02/19 21:09 04/02/19 21:09 04/02/19 21:09 04/02/19 21:09 - Abdominal Tenderness: Tender - Tender in the epigastric area, remaining abdomen is benign Course - Re-evaluation Re-evalutation: Patient with epigastric tenderness, reported fever, multiple episode of vomiting. Patient also states that she has had a lot of sick symptoms and abdominal discomfort after eating multiple times recently. As result also obtaining ultrasound. I have greeted and performed a rapid initial assessment of this patient. A comprehensive ED assessment and evaluation of the patient, analysis of test results and completion of the medical decision making process will be conducted by additional ED providers. - Vital Signs Vital signs: Temp Pulse Resp BP Pulse Ox 98.9 F 79 20 135/90 H 97 04/02/19 21:09 04/02/19 21:09 04/02/19 21:09 04/02/19 21:09 04/02/19 21:09 Doctor's Discharge - Discharge Referrals: [facility] [Primary Care Provider] - Follow up as needed
--- NOTE | 2019-04-02 22:32 | EKG REPORT ---
SEVERITY:- ABNORMAL ECG - SINUS RHYTHM LEFT VENTRICULAR HYPERTROPHY BORDERLINE T ABNORMALITIES, INFERIOR LEADS : Confirmed by: Camryn Carlson MD 02-Apr-2019 22:32:27
--- NOTE | 2019-04-02 23:43 | RADIOLOGY REPORT (SQ) ---
EXAM DESCRIPTION: US ABDOMEN LIMITED COMPLETED DATE/TME: 04/02/2019 22:27 CLINICAL HISTORY: 39 years, Female, epigastric pain, fever, vomiting COMPARISON: None. TECHNIQUE: Sonographic evaluation of the abdomen was performed. LIMITATIONS: None. FINDINGS: The visualized portions of the pancreatic head and body appear normal in echogenicity. Abdominal aortic measurements are as follows: Proximal abdominal aorta: 1.9 cm Mid abdominal aorta: 1.5 cm Distal abdominal aorta: 0.9 cm Visualized portions of the IVC appear normal. The liver is diffusely echogenic measuring 17.6 cm in length. No focal liver lesions are appreciated. Antegrade flow is documented within the main portal vein. Gallbladder wall thickness measures 1 mm. Common bile duct diameter is 3 mm. No gallstones. Sonographic Scott's sign was negative. Right kidney measures 11.1 x 5.8 x 6.1 cm in size. It is normal in echogenicity. No hydronephrosis. IMPRESSION: No acute sonographic abnormality. Echogenic liver, suggestive of hepatic steatosis. copyright 2010 [employer]- All Rights Reserved
[2019-04-03 00:13] LABS: ABSOLUTE EOSINOPHILS # (AUTO) 0.2 10^3/uL (0.0-0.6); ABSOLUTE LYMPHOCYTES (AUTO) 2.1 10^3/uL (0.5-4.7); ABSOLUTE MONOCYTES (AUTO) 0.6 10^3/uL (0.1-1.4); ABSOLUTE NEUT (AUTO) 4.1 10^3/uL (1.7-8.2); BASOPHILS % (AUTO) 0.5 % (0-2); EOSINOPHILS % (AUTO) 2.2 % (0-6); HEMATOCRIT 40.5 % (36.0-47.0); HEMOGLOBIN 13.7 g/dL (12.0-15.5); MEAN CORPUSCULAR HEMOGLOBIN 28.9 pg (27.0-33.4); MEAN CORPUSCULAR HGB CONC 33.8 g/dL (32.0-36.0); MEAN CORPUSCULAR VOLUME 86 fl (80-97); MONOCYTES % (AUTO) 8.8 % (3-13); PLATELET COUNT 323 10^3/uL (150-450); RED BLOOD COUNT 4.73 10^6/uL (3.72-5.28); RED CELL DISTRIBUTION WIDTH 13.2 % (11.5-14.0); SEGMENTED NEUTROPHILS % (AUTO) 58.5 % (42-78); TOTAL CELLS COUNTED % (AUTO) 100 %
[2019-04-03 00:36] LABS: APPEARANCE,URINE SLIGHTLY-CLOUDY; BILIRUBIN,URINE NEGATIVE (NEGATIVE); COLOR,URINE YELLOW; GLUCOSE, URINE NEGATIVE (NEGATIVE); KETONES,URINE NEGATIVE (NEGATIVE); LEUKOCYTE ESTERASE,URINE NEGATIVE (NEGATIVE); NITRITE,URINE NEGATIVE (NEGATIVE); PROTEIN,URINE NEGATIVE (NEGATIVE); URINE SPECIFIC GRAVITY 1.013; UROBILINOGEN,URINE NEGATIVE mg/dL (<2.0)
[2019-04-03 00:44] LABS: ALANINE AMINOTRANSFERASE 41 U/L (9-52); ALBUMIN 4.4 g/dL (3.5-5.0); ALKALINE PHOSPHATASE 60 U/L (38-126); ANION GAP 12 (5-19); ASPARTATE AMINO TRANSFERASE 30 U/L (14-36); BILIRUBIN,DIRECT 0.2 mg/dL (0.0-0.4); BILIRUBIN,TOTAL 0.5 mg/dL (0.2-1.3); BLOOD UREA NITROGEN 8 mg/dL (7-20); CALCIUM 10.3 mg/dL (8.4-10.2); CARBON DIOXIDE 30 mmol/L (22-30); CHLORIDE 97 mmol/L (98-107); GLUCOSE 122 mg/dL (75-110); LIPASE 89.4 U/L (23-300); POTASSIUM 3.5 mmol/L (3.6-5.0); SODIUM 138.7 mmol/L (137-145); TOTAL PROTEIN 7.3 g/dL (6.3-8.2)
--- NOTE | 2019-04-03 01:13 | ER Document Report ---
ED General - General TRAVEL OUTSIDE OF THE [place] IN LAST 30 DAYS: No <ROSALIE DAVIS - Last Filed: 04/03/19 05:00> <VIKTORIYA MCKEON - Last Filed: 04/03/19 14:10> - General Chief Complaint: Chest Pain Stated Complaint: CHEST PAIN Time Seen by Provider: 04/02/19 22:26 Primary Care Provider: [facility] [Primary Care Provider] - Follow up as needed Notes: Patient is a pleasant 39-year-old female presents with complaint of headache, neck stiffness, body aches, nausea vomiting, and fever. Symptoms started yesterday. 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 She does not remember any of the recently being sick. She has some chest tightness. She says Monday she had a tick pulled off her. Is behind the shoulder. She has not noticed any redness or swelling from where the tick bite was. No confusion. She has no other complaints at this time. (ROSALIE DAVIS) - Related Data Allergies/Adverse Reactions: codeine [Codeine] Allergy (Verified 01/22/19 08:53) Sulfa (Sulfonamide Antibiotics) Allergy (Verified 01/22/19 08:53) Past Medical History - Social History Smoking Status: Former Smoker Frequency of alcohol use: None Drug Abuse: None Family History: Arthritis, CAD, COPD, CVA, DM, Hyperlipidemia, Hypertension, Malignancy, Thyroid Disfunction, Other - Parents with cardiac issues. Patient has suicidal ideation: No Patient has homicidal ideation: No - Past Medical History Cardiac Medical History: Reports: Hx Hypertension Denies: Hx Heart Attack Pulmonary Medical History: Denies: Hx Asthma, Hx Bronchitis, Hx COPD, Hx Pneumonia, Hx Tuberculosis Neurological Medical History: Reports: Hx Migraine. Denies: Hx Seizures Endocrine Medical History: Reports: Hx Diabetes Mellitus Type 2 Renal/ Medical History: Reports: Hx Ectopic , Hx Kidney Stones, Hx Ovarian Cysts. Denies: Hx Peritoneal Dialysis GI Medical History: Reports: Hx Colonoscopy Musculoskeletal Medical History: Reports Hx Arthritis, Reports Hx Musculoskeletal Trauma Psychiatric Medical History: Reports: Hx Anxiety Past Surgical History: Reports: Hx Section, Hx Oral Surgery - wisdom teeth, Hx Tubal Ligation. Denies: Hx Hysterectomy - Immunizations Immunizations up to date: Yes Hx Diphtheria, Pertussis, Tetanus Vaccination: Yes <ROSALIE DAVIS - Last Filed: 04/03/19 05:00> Review of Systems <ROSALIE DAVIS - Last Filed: 04/03/19 05:00> - Review of Systems Notes: My Normal Review Basic REVIEW OF SYSTEMS: CONSTITUTIONAL : Denies fever, chills, or sweats. Denies recent illness. EENT: Denies eye, ear, throat, or mouth pain or symptoms. Denies nasal or sinus congestion. CARDIOVASCULAR: Denies chest pain. RESPIRATORY: Denies cough, cold, or chest congestion. Denies shortness of breath, difficulty breathing, or wheezing. GASTROINTESTINAL: Denies abdominal pain. Denies nausea, vomiting, or diarrhea. GENITOURINARY: Denies difficulty urinating, painful urination, burning, frequency, or blood in urine. MUSCULOSKELETAL: Neck pain and stiffness. SKIN: Denies rash or skin lesions. NEUROLOGICAL: Denies altered mental status or loss of consciousness. Has a headache. Denies weakness or paralysis or loss of use of either side. Denies problems with gait or speech. Denies sensory or motor loss. ALL OTHER SYSTEMS REVIEWED AND NEGATIVE. (ROSALIE DAVIS) Physical Exam <ROSALIE DAVIS - Last Filed: 04/03/19 05:00> - Vital signs Vitals: Temp Pulse Resp BP Pulse Ox 98.9 F 79 20 135/90 H 97 04/02/19 21:09 04/02/19 21:09 04/02/19 21:09 04/02/19 21:09 04/02/19 21:09 - Notes Notes: General Appearance: Well nourished, alert, cooperative, no acute distress, moderate obvious discomfort. Not septic or toxic appearing. Vitals: reviewed, See vital signs table. Head: no swelling or tenderness to the head Eyes: PERRL, EOMI, Conjuctiva clear Mouth: No decreasd moisture Throat: No tonsillar inflammation, No airway obstruction, No lymphadenopathy Ears: Normal-appearing tympanic membranes bilaterally. Neck: Supple, no neck tenderness, No thyromegaly Lungs: No wheezing, No rales, No rhonci, No accessory muscle use, good air exchange bilaterally. Heart: Normal rate, Regular rythm, No murmur, no rub Abdomen: Normal BS, soft, No rigidity, No abdominal tenderness, No guarding, no rebound, no abdominal masses, no organomegaly Extremities: strength 5/5 in all extremities, good pulses in all extremities, no swelling or tenderness in the extremities, no edema. Skin: warm, dry, appropriate color, small bump on the back of left shoulder from previous tick bite. No surrounding erythema. No associated rash. Neuro: speech clear, oriented x 3, normal affect, responds appropriately to questions. Cranial nerves II through XII are intact. Distal sensation intact. Patient moves all extremities without difficulty. (ROSALIE DAVIS) Course - Laboratory Result Diagrams: 04/02/19 23:51 04/02/19 23:51 <ROSALIE DAVIS - Last Filed: 04/03/19 05:00> - Laboratory Result Diagrams: 04/02/19 23:51 04/02/19 23:51 <VIKTORIYA MCKEON - Last Filed: 04/03/19 14:10> - Re-evaluation Re-evalutation: 04/03/19 03:18 Patient clinically does not look very ill therefore I think bacterial meningitis is less likely however she continues to complain of pressure and neck stiffness with recent fever and therefore I do feel that lumbar puncture is necessary. Patient did agree to it. Attempted 3 times at the interspaces L4-L5 and L3-L4. I am unable to get in his cerebrospinal fluid. I will hold the patient here to morning time and have it done under fluoroscopy. If the lumbar puncture is negative then I think patient is to be placed on doxycycline to cover for possible [place] spotted fever. Patient is agreeable with plan. I will go and cover for possible meningitis until lumbar puncture can be performed and results are back. 04/03/19 03:27 I spoke with Leon, [employer] assistant, informed him that we would need a lumbar puncture under fluoroscopy in the morning. He said that they would arrange for it. I have put in order for fluoroscopy and made xray aware. 04/03/19 04:46 (ROSALIE DAVIS) 04/03/19 09:47 The lumbar puncture results are back and they do not suggest any type of infectious problem, viral or bacterial. She will be discharged with the instructions and prescriptions that Dr. Davis wrote before he went home. (VIKTORIYA MCKEON) - Vital Signs Vital signs: Temp Pulse Resp BP Pulse Ox 98.8 F 79 9 L 143/85 H 99 04/03/19 10:31 04/02/19 21:09 04/03/19 10:31 04/03/19 10:31 04/03/19 10:31 - Laboratory Laboratory results interpreted by me: 04/02/19 04/03/19 23:51 08:26 Potassium 3.5 L Chloride 97 L Glucose 122 H Calcium 10.3 H CSF Glucose 79 H - EKG Interpretation by Me Additional EKG results interpreted by me: 04/03/19 01:12 EKG is reviewed and interpreted by me. EKG shows sinus rhythm with a rate of [address] segment elevation or depression. No ischemic T wave inversions. LA interval, QRS duration, QT intervals are within normal range. Old EKG for comparison is from February 18, 2019. (ROSALIE DAVIS) Discharge <ROSALIE DAVIS - Last Filed: 04/03/19 05:00> <VIKTORIYA MCKEON - Last Filed: 04/03/19 14:10> - Discharge Clinical Impression: Fever Qualifiers: Fever type: unspecified Qualified Code(s): R50.9 - Fever, unspecified Headache Qualifiers: Headache type: unspecified Headache chronicity pattern: acute headache Intractability: not intractable Qualified Code(s): R51 - Headache Condition: Stable Disposition: HOME, SELF-CARE Additional Instructions: The exact cause of your fevers is not 100% clear. I suspect it could be related to [place] spotted fever. We did draw blood testing for this however it does take a few days for your blood test come back. Therefore, we will place you on doxycycline which is an antibiotic that helps treat [place] spotted fever. Please take the antibiotic as prescribed. Doxycycline will make your skin more sensitive to the sun so please make sure you keep your skin covered or wear sunscreen whenever out in the sun. Please follow-up with your doctor on or Monday. Please return to the ER immediately if you have worsening headaches, fevers not responding to Tylenol, intractable vomiting, or if you feel you are worsening. Please do not return to work until you have been fever free for at least 24 hours. Prescriptions: Doxycycline Hyclate 100 mg PO BID #14 capsule Ondansetron [Zofran Odt 4 mg Tablet] 1 tab PO Q4H PRN #15 tab.rapdis PRN Reason: For Nausea/Vomiting Forms: Return to Work Referrals: [facility] [Primary Care Provider] - Follow up as needed
[2019-04-03] MEDS ORDERED: MORPHINE SULFATE 10 MG/ML INJ IV ONE ×3 (01:30→10:29)
[2019-04-03] MEDS ORDERED: ONDANSETRON HCL INJ/PF 4 MG/2 ML SDV IV ONE ×2 (02:44→10:29)
[2019-04-03] MEDS ORDERED: ONDANSETRON HCL INJ/PF 4 MG/2 ML SDV ONE (02:45)
[2019-04-03] MEDS ORDERED: LIDOCAINE 1% INJ-PF (10 MG/ML) 30 ML SDV ONE (03:04)
[2019-04-03] MEDS ORDERED: CEFTRIAXONE 2 GM/D5W RTU 2 GM/50 ML RTUPB IV ONE (03:17)
[2019-04-03] MEDS ORDERED: DOXYCYCLINE HYCLATE 100 MG TABLET PO ONE (03:28)
--- NOTE | 2019-04-03 09:01 | RADIOLOGY REPORT (SQ) ---
EXAM DESCRIPTION: LUMBAR PUNCTURE; FLUORO/NEEDLE PLACEMENT/SPINE COMPLETED DATE/TIME: 04/03/2019 8:38 am REASON FOR STUDY: HEADACHE, FEVER, STIFF NECK; HEADACHE COMPARISON: None. FLUOROSCOPY TIME: 0.1 seconds 1 images saved to PACS. TECHNIQUE: Fluoroscopic guided lumbar puncture. LIMITATIONS: None. PROCEDURE: After written consent and assessment were obtained, the patient was brought into the fluo roscopy room and placed prone on the table. The patient's lower back was prepped in a sterile fashio n and an entry site was selected under live fluoroscopic guidance. The entry site was anesthetized wi th 1% lidocaine. A 20 gauge needle was advanced through the skin and into the thecal sac at the level of L2-3. Opening pressure was obtained which was 25 cm of H2O. After approximately 13 ml was drain ed, the needle was removed and a sterile bandage was placed of the site. Closing pressure of 13 cm o f H2O. Specimens were sent to the lab for testing. A fluoroscopic spot image was saved to PACS conf irming level access. FINDINGS: Clear CSF IMPRESSION: Lumbar puncture under fluoroscopy. No immediate complication. COMMENT: Patient medication list reviewed: Yes- Quality ID# [id number]:Eligible professional attests to doc umenting in the medical record they obtained, updated, or reviewed the patient's current medications. . Quality ID 145: Final reports for procedures using fluoroscopy that document radiation exposure mg josephine, or exposure time and number of fluorographic images (if radiation exposure indices are not avail able) TECHNICAL DOCUMENTATION: JOB ID: [id number] [employer]- All Rights Reserved Reading location - IP/workstation name: [email or web address]
[2019-04-03 09:36] LABS: APPEARANCE ALL TUBES CLEAR; COLOR ALL TUBES COLORLESS; CSF TUBE NUMBER 1; VOLUME TUBE 1 3.2 CC; VOLUME TUBE 4 3.8 CC
[2019-04-03 09:37] LABS: RED BLOOD CELL,CSF 11 /uL (0-10); WHITE BLOOD CELL,CSF 3 /uL (0-5)
[2019-04-03 09:41] LABS: GLUCOSE,CSF 79 mg/dL (40-70); PROTEIN,CSF 58 mg/dL (12-60)
[2019-04-03 09:42] LABS: APPEARANCE ALL TUBES CLEAR; COLOR ALL TUBES COLORLESS; CSF TUBE NUMBER 4; VOLUME TUBE 1 3.2 CC; VOLUME TUBE 4 3.8 CC
[2019-04-03 09:43] LABS: RED BLOOD CELL,CSF 1 /uL (0-10); WHITE BLOOD CELL,CSF 2 /uL (0-5)
[2019-04-03 10:51] VITALS: BP 143/85
[2019-04-05 03:36] LABS: ROCKY MTN SPOTTED FEV IGG EIA Negative (Negative)
[2019-04-05 07:12] LABS: ROCKY MTN SPOTTED FEVER IGM AB 0.62 index (0.00-0.89)
== END 2019-04-03 11:02 | disposition home or self-care (01) ==
LOC: ER 20:01
DX: R50.9 Fever, unspecified (principal); R51 Headache; R07.9 Chest pain, unspecified; M43.6 Torticollis; M79.10 Myalgia, unspecified site; R11.2 Nausea with vomiting, unspecified; I10 Essential (primary) hypertension; Z88.6 Allergy status to analgesic agent; Z88.2 Allergy status to sulfonamides; Z98.51 Tubal ligation status
CPT/HCPCS: 93005; 96376; 99284; 96361; 96375; 96365; 36415; 87070; 87205; 83690; 85025; 89050; 82945; 84157; 81025; 80053; 81001; 86757 ×2; 77003; 62270; 76705; 93010; S0119; J2270; J2405; J7030; J0696

== ENCOUNTER 2019-04-04 09:17 | Emergency (ER) | payer OTHER ==
[2019-04-04] MEDS ORDERED: NORMAL SALINE 1000 ML 1,000 ML IV ONE ×3 (10:56→19:55)
[2019-04-04] MEDS ORDERED: ONDANSETRON HCL INJ/PF 4 MG/2 ML SDV IV ONE (10:58)
[2019-04-04] MEDS ORDERED: MORPHINE SULFATE 10 MG/ML INJ IV ONE (10:58)
--- NOTE | 2019-04-04 10:59 | ER Document Report ---
ED Medical Screen (RME) - General Chief Complaint: Nausea/Vomiting Stated Complaint: VOMITING/HEADACHE/DIZZY/STIFF NECK Time Seen by Provider: 04/04/19 10:52 Primary Care Provider: [facility] [Primary Care Provider] - Follow up as needed Mode of Arrival: Wheelchair Information source: Patient Notes: Patient presents complaining of neck pain with stiffness headache and nausea and vomiting. Patient was discharged yesterday told that she may have [place] spotted fever and started on doxycycline. Patient did have a lumbar puncture performed yesterday. Patient reports that headache pain has worsened. Patient reports fever off and on over the past 3 to 4 days although is afebrile at this time. I have greeted and performed a rapid initial assessment of this patient. A comprehensive ED assessment and evaluation of the patient, analysis of test results and completion of the medical decision making process will be conducted by additional ED providers. TRAVEL OUTSIDE OF THE [place] IN LAST 30 DAYS: No - Related Data Allergies/Adverse Reactions: codeine [Codeine] Allergy (Verified 04/04/19 09:19) Sulfa (Sulfonamide Antibiotics) Allergy (Verified 04/04/19 09:19) Past Medical History - Social History Chew tobacco use (# tins/day): No Frequency of alcohol use: None Drug Abuse: None - Past Medical History Cardiac Medical History: Reports: Hx Hypertension Denies: Hx Heart Attack Pulmonary Medical History: Denies: Hx Asthma, Hx Bronchitis, Hx COPD, Hx Pneumonia, Hx Tuberculosis Neurological Medical History: Reports: Hx Migraine. Denies: Hx Seizures Endocrine Medical History: Reports: Hx Diabetes Mellitus Type 2 Renal/ Medical History: Reports: Hx Ectopic , Hx Kidney Stones, Hx Ovarian Cysts. Denies: Hx Peritoneal Dialysis GI Medical History: Reports: Hx Colonoscopy Musculoskeltal Medical History: Reports Hx Arthritis, Reports Hx Musculoskeletal Trauma Psychiatric Medical History: Reports: Hx Anxiety Past Surgical History: Reports: Hx Section, Hx Oral Surgery - wisdom teeth, Hx Tubal Ligation. Denies: Hx Hysterectomy - Immunizations Immunizations up to date: Yes Hx Diphtheria, Pertussis, Tetanus Vaccination: Yes Physical Exam - Vital signs Vitals: Temp Pulse Resp BP Pulse Ox 98.0 F 83 14 141/84 H 96 04/04/19 09:23 04/04/19 09:23 04/04/19 09:23 04/04/19 09:23 04/04/19 09:23 - General General appearance: Alert Notes: Patient appears uncomfortable, patient with primarily lateral cervical tenderness, no meningismus. Course - Vital Signs Vital signs: Temp Pulse Resp BP Pulse Ox 98.0 F 83 14 141/84 H 96 04/04/19 09:23 04/04/19 09:23 04/04/19 09:23 04/04/19 09:23 04/04/19 09:23 Doctor's Discharge - Discharge Referrals: [facility] [Primary Care Provider] - Follow up as needed
[2019-04-04 11:19] LABS: ABSOLUTE BASOPHILS # (AUTO) 0.1 10^3/uL (0.0-0.2); ABSOLUTE EOSINOPHILS # (AUTO) 0.1 10^3/uL (0.0-0.6); ABSOLUTE LYMPHOCYTES (AUTO) 1.6 10^3/uL (0.5-4.7); ABSOLUTE MONOCYTES (AUTO) 0.5 10^3/uL (0.1-1.4); ABSOLUTE NEUT (AUTO) 8.9 10^3/uL (1.7-8.2); BASOPHILS % (AUTO) 0.6 % (0-2); EOSINOPHILS % (AUTO) 0.8 % (0-6); HEMATOCRIT 41.7 % (36.0-47.0); HEMOGLOBIN 14.2 g/dL (12.0-15.5); LYMPHOCYTES % (AUTO) 14.4 % (13-45); MEAN CORPUSCULAR HEMOGLOBIN 29.4 pg (27.0-33.4); MEAN CORPUSCULAR HGB CONC 34.1 g/dL (32.0-36.0); MEAN CORPUSCULAR VOLUME 86 fl (80-97); MONOCYTES % (AUTO) 4.9 % (3-13); PLATELET COUNT 354 10^3/uL (150-450); RED BLOOD COUNT 4.84 10^6/uL (3.72-5.28); RED CELL DISTRIBUTION WIDTH 13.2 % (11.5-14.0); SEGMENTED NEUTROPHILS % (AUTO) 79.3 % (42-78); TOTAL CELLS COUNTED % (AUTO) 100 %; WHITE BLOOD COUNT 11.2 10^3/uL (4.0-10.5)
[2019-04-04 11:44] LABS: ALBUMIN 4.5 g/dL (3.5-5.0); CHLORIDE 102 mmol/L (98-107); POTASSIUM 4.7 mmol/L (3.6-5.0); SODIUM 141.2 mmol/L (137-145)
[2019-04-04 11:56] LABS: ALANINE AMINOTRANSFERASE 37 U/L (9-52); ALKALINE PHOSPHATASE 62 U/L (38-126); ANION GAP 13 (5-19); ASPARTATE AMINO TRANSFERASE 27 U/L (14-36); BILIRUBIN,DIRECT 0.3 mg/dL (0.0-0.4); BILIRUBIN,TOTAL 0.6 mg/dL (0.2-1.3); BLOOD UREA NITROGEN 11 mg/dL (7-20); CALCIUM 10.5 mg/dL (8.4-10.2); CARBON DIOXIDE 26 mmol/L (22-30); GLUCOSE 133 mg/dL (75-110); TOTAL PROTEIN 7.5 g/dL (6.3-8.2)
[2019-04-04] MEDS ORDERED: BUTALB/ACETAMINOPHEN/CAFFEINE 1 TAB EACH PO ONE (17:27)
[2019-04-04] MEDS ORDERED: HYDROMORPHONE HCL INJ/PF 2 MG/ML AMPULE IV ONE (23:00)
--- NOTE | 2019-04-04 23:34 | ER Document Report ---
ED Headache - General Chief Complaint: Nausea/Vomiting Stated Complaint: VOMITING/HEADACHE/DIZZY/STIFF NECK Time Seen by Provider: 04/04/19 10:52 Primary Care Provider: [facility] [NO LOCAL MD] - Follow up as needed Mode of Arrival: Wheelchair Information source: Patient Notes: Patient is a 39-year-old female who returns to the emergency room with continued complaint of stiff neck worsening headache nausea without vomiting and photophobia. Patient was seen on 04 02 by physician here in emergency room who did an extensive work-up and basically boil the down to where she probably had [place] spotted tick fever. She had admitted to taking the take off her body a couple of days prior. Patient was sent home on doxycycline only after she received a spinal tap. She comes back tonight with worsening headache. Patient states the headache is gotten so severe when she tries to sit up she cannot. She admits to only have taken 2 doses of the antibiotics since being discharged out of the emergency room on the . Patient was seen up in [facility] and given a liter of fluids where she states that she had a little bit improvement of her headache but not by much. She denies any recent fever. Patient states that she has been having such a headache that she has not been able to eat or drink anything. She denies vomiting currently. TRAVEL OUTSIDE OF THE [place] IN LAST 30 DAYS: No - HPI Patient complains to provider of: Headache Patient reports: No: Brain neoplasm, Frequent migraines, Hx chronic headaches, Occasional migraines, Prior CVA, Prior neurologic eval, Prior hemorrhage Onset: Other - 2 days ago Onset was: Abrupt Timing: Worse Quality of pain: Pressure, Sharp, Stabbing, Throbbing Severity: Severe Pain Level: 5 Context: Tick bite. denies: Meningitis exposure Associated symptoms: Fever, Nausea/vomiting, Photophobia Exacerbated by: Light Similar symptoms previously: Yes Recently seen / treated by doctor: Yes - Related Data Allergies/Adverse Reactions: codeine [Codeine] Allergy (Verified 04/04/19 09:19) Sulfa (Sulfonamide Antibiotics) Allergy (Verified 04/04/19 09:19) Past Medical History - General Information source: Patient - Social History Smoking Status: Former Smoker Cigarette use (# per day): No Chew tobacco use (# tins/day): No Smoking Education Provided: No Frequency of alcohol use: None Drug Abuse: None Lives with: Family Family History: Reviewed & Not Pertinent, Arthritis, CAD, COPD, CVA, DM, Hyperlipidemia, Hypertension, Malignancy, Thyroid Disfunction, Other - Parents with cardiac issues. Patient has suicidal ideation: No Patient has homicidal ideation: No - Past Medical History Cardiac Medical History: Reports: Hx Hypertension Denies: Hx Heart Attack Pulmonary Medical History: Denies: Hx Asthma, Hx Bronchitis, Hx COPD, Hx Pneumonia, Hx Tuberculosis Neurological Medical History: Reports: Hx Migraine. Denies: Hx Seizures Endocrine Medical History: Reports: Hx Diabetes Mellitus Type 2 Renal/ Medical History: Reports: Hx Ectopic , Hx Kidney Stones, Hx Ovarian Cysts. Denies: Hx Peritoneal Dialysis GI Medical History: Reports: Hx Colonoscopy Musculoskeletal Medical History: Reports Hx Arthritis, Reports Hx Musculoskeletal Trauma Psychiatric Medical History: Reports: Hx Anxiety Past Surgical History: Reports: Hx Section, Hx Oral Surgery - wisdom teeth, Hx Tubal Ligation. Denies: Hx Hysterectomy - Immunizations Immunizations up to date: Yes Hx Diphtheria, Pertussis, Tetanus Vaccination: Yes Review of Systems - Review of Systems Constitutional: See HPI, Fever EENT: No symptoms reported Cardiovascular: No symptoms reported Respiratory: No symptoms reported Gastrointestinal: Nausea Genitourinary: No symptoms reported Female Genitourinary: No symptoms reported Musculoskeletal: No symptoms reported Skin: No symptoms reported Hematologic/Lymphatic: No symptoms reported Neurological/Psychological: See HPI, Headaches -: Yes All other systems reviewed and negative Physical Exam - Vital signs Vitals: Temp Pulse Resp BP Pulse Ox 98.0 F 83 14 141/84 H 96 04/04/19 09:23 04/04/19 09:23 04/04/19 09:23 04/04/19 09:23 04/04/19 09:23 Interpretation: Hypertensive Notes: PHYSICAL EXAMINATION: GENERAL: patient is a well-nourished well-developed 39-year-old female who is in no apparent distress on physical exam tonight although does appear very uncomfortable in obvious pain. HEAD: Atraumatic, normocephalic. EYES: Pupils equal round and reactive to light, extraocular movements intact, conjunctiva are normal. ENT: Nares patent, oropharynx clear without exudates. Moist mucous membranes. NECK: Normal range of motion, supple without lymphadenopathy physical exam the cervical spine does show patient has free range of motion with the neck although it does appear to be somewhat uncomfortable and has no meningeal type presentation. LUNGS: Breath sounds clear to auscultation bilaterally and equal. No wheezes rales or rhonchi. HEART: Regular rate and rhythm without murmurs Musculoskeletal: Normal range of motion, no pitting or edema. No cyanosis. NEUROLOGICAL: Cranial nerves grossly intact. Normal speech, Normal sensory, motor exams PSYCH: Normal mood, normal affect. SKIN: Warm, Dry, normal turgor, no rashes or lesions noted. Course - Re-evaluation Re-evalutation: 04/04/19 23:33 Patient was given 3 L of fluid in ER before anesthesia was consulted. She was also given 2 Fioricet tablets and some liquid caffeine i.e. from [employer]. None of this seemed to help her problem. After the blood patch she got great relief of her headache. But she has some abdominal pain and discomfort at that point in time. Probably because she has not eaten anything all day today. We are going to discharge her home with some Percocet for her headache and for neck and back pain. She is to return to ER if she has increasing problems especially fever. And she is supposed to continue with her antibiotics. 04/05/19 01:34 04/05/19 01:37 Patient was [facility] by [facility] He was actually fantastic and addressing the patient's concerns and discomfort and though he brought patient back before she got total relief of her headache she wanted me to inform him that she appreciated his efforts and that her headache was almost cured. - Vital Signs Vital signs: Temp Pulse Resp BP Pulse Ox 98.5 F 84 16 143/80 H 98 04/05/19 00:13 04/05/19 00:13 04/05/19 00:13 04/05/19 00:13 04/05/19 00:13 - Laboratory Result Diagrams: 04/04/19 11:00 04/04/19 11:00 Laboratory results interpreted by me: 04/04/19 04/04/19 11:00 11:00 WBC 11.2 H Seg Neutrophils % 79.3 H Absolute Neutrophils 8.9 H Glucose 133 H Calcium 10.5 H Discharge - Discharge Clinical Impression: Spinal puncture headache Headache Qualifiers: Headache type: other headache syndrome Qualified Code(s): G44.89 - Other headache syndrome Condition: Good Disposition: HOME, SELF-CARE Instructions: Post-Spinal Headache ([facility]) Additional Instructions: As we discussed you are being treated for [place] spotted tick fever anterior cultures have not come back yet. You have only had 2 doses of the medication so it is important that you continue taking the antibiotics. Given that you just had a spinal tap done yesterday for possibility of having meningitis type of a presentation and you came back with a worsening type of a headache and even after receiving fluids her headache was not getting better you had a process called a blood patch performed. It was explained to you and was performed by the anesthesiologist. The majano thing is to be on your back and keeping increasing her fluids as much as possible. So home and rest do not attempted perform any types of activities for the next couple of days. Should you have a progressively worsening headache or increasing fever please return to ER for recheck. Prescriptions: Oxycodone HCl/Acetaminophen [Percocet 5-325 mg Tablet] 1 tab PO Q4H PRN #12 tab PRN Reason: Promethazine HCl [Phenergan 25 mg Tablet] 1 - 2 tab PO Q6H PRN #15 tablet PRN Reason: Forms: Elevated Blood Pressure, Smoking Cessation Education, Return to Work Referrals: [facility] [NO LOCAL MD] - Follow up as needed
[2019-04-05 00:24] VITALS: BP 143/80
== END 2019-04-05 00:23 | disposition home or self-care (01) ==
LOC: ER 09:17
DX: T88.59XA Other complications of anesthesia, initial encounter (principal); G44.40 Drug-induced headache, not elsewhere classified, not intractable; T41.3X5A Adverse effect of local anesthetics, initial encounter; Y83.8 Other surgical procedures as the cause of abnormal reaction of the patient, or of later complication, without mention of misadventure at the time of the procedure; G44.89 Other headache syndrome; M54.2 Cervicalgia; M54.9 Dorsalgia, unspecified; R11.0 Nausea; M43.6 Torticollis; I10 Essential (primary) hypertension; E11.9 Type 2 diabetes mellitus without complications; Z88.5 Allergy status to narcotic agent; Z88.2 Allergy status to sulfonamides
CPT/HCPCS: 99283; 96361; 96374; 96375; 62273; 36415; 85025; 80053; J3490; J2270; J1170; J2405; J7030

== ENCOUNTER → 2019-08-07 | Outpatient (CLI) | payer OTHER ==
[2019-08-07 09:51] LABS: ABSOLUTE EOSINOPHILS # (AUTO) 0.1 10^3/uL (0.0-0.6); ABSOLUTE LYMPHOCYTES (AUTO) 2.5 10^3/uL (0.5-4.7); ABSOLUTE MONOCYTES (AUTO) 0.6 10^3/uL (0.1-1.4); ABSOLUTE NEUT (AUTO) 4.7 10^3/uL (1.7-8.2); BASOPHILS % (AUTO) 0.4 % (0-2); EOSINOPHILS % (AUTO) 1.7 % (0-6); HEMATOCRIT 38.5 % (36.0-47.0); HEMOGLOBIN 13.1 g/dL (12.0-15.5); LYMPHOCYTES % (AUTO) 31.1 % (13-45); MEAN CORPUSCULAR HEMOGLOBIN 28.3 pg (27.0-33.4); MEAN CORPUSCULAR HGB CONC 34.1 g/dL (32.0-36.0); MEAN CORPUSCULAR VOLUME 83 fl (80-97); PLATELET COUNT 330 10^3/uL (150-450); RED BLOOD COUNT 4.63 10^6/uL (3.72-5.28); RED CELL DISTRIBUTION WIDTH 12.6 % (11.5-14.0); SEGMENTED NEUTROPHILS % (AUTO) 59.8 % (42-78); TOTAL CELLS COUNTED % (AUTO) 100 %; WHITE BLOOD COUNT 7.9 10^3/uL (4.0-10.5)
[2019-08-07 10:15] LABS: ALBUMIN 4.4 g/dL (3.5-5.0); ALKALINE PHOSPHATASE 64 U/L (38-126); ANION GAP 10 (5-19); ASPARTATE AMINO TRANSFERASE 29 U/L (14-36); BILIRUBIN,DIRECT 0.1 mg/dL (0.0-0.4); BILIRUBIN,TOTAL 0.4 mg/dL (0.2-1.3); BLOOD UREA NITROGEN 12 mg/dL (7-20); CALCIUM 9.8 mg/dL (8.4-10.2); CARBON DIOXIDE 24 mmol/L (22-30); CHLORIDE 104 mmol/L (98-107); CHOLESTEROL 131.49 mg/dL (0-200); GLUCOSE 113 mg/dL (75-110); POTASSIUM 4.6 mmol/L (3.6-5.0); TOTAL PROTEIN 7.3 g/dL (6.3-8.2); TRIGLYCERIDES 287 mg/dL (<150)
[2019-08-07 10:26] LABS: DIRECT LDL 72 mg/dL (<100)
[2019-08-07 10:32] LABS: VLDL CHOLESTEROL 57.4 mg/dL (10-31)
== END ==
LOC: CCC 09:06
DX: I10 Essential (primary) hypertension (principal); E11.8 Type 2 diabetes mellitus with unspecified complications
CPT/HCPCS: 36415; 80053; 80061; 83036; 84443; 85025

== ENCOUNTER → 2019-08-22 | Outpatient (CLI) | payer OTHER ==
--- NOTE | 2019-08-23 12:16 | WOMENS IMAGING REPORT ---
EXAM DESCRIPTION: PINK WARRIOR BILATERAL SCREEN COMPLETED DATE/TIME: 08/22/2019 8:23 am REASON FOR STUDY: PINK PINK PINK Z12.31 SCREENING MAMMO PINK PINK PINK Z12.31 ENCNTR SCREEN MAMMOGR AM FOR MALIGNANT NEOPLASM OF JONES COMPARISON: Baseline study EXAM PARAMETERS: Standard craniocaudal and mediolateral oblique views of each breast recorded using digital acquisition. Read with the assistance of CAD. .[facility] - [employer] Version 9.2 LIMITATIONS: None. FINDINGS: No suspicious masses, suspicious calcifications or architectural distortion. No areas of c oncern. IMPRESSION: Negative MAMMOGRAM. BIRADS 1 BREAST DENSITY: b. There are scattered areas of fibroglandular density. BIRAD: ASSESSMENT: 1 NEGATIVE RECOMMENDATION: ROUTINE SCREENING COMMENT: The patient has been notified of the results by letter per MQSA requirements. Additional no tification policies are in place for contacting patient with suspicious or incomplete findings. Quality ID #[id number]: The [employer] recommends an annual screening mammogram for women aged 40 years or over. This facility utilizes a reminder system to ensure that all patients receive reminder letters, and/or direct phone calls for appointments. This includes reminders for routine scr eening mammograms, diagnostic mammograms, or other Breast Imaging Interventions when appropriate. Th is patient will be placed in the appropriate reminder system. TECHNICAL DOCUMENTATION: FINDING NUMBER: (1) ASSESSMENT: (1) JOB ID: [id number] [employer] [place]- All Rights Reserved Reading location - IP/workstation name: [email or web address]
== END ==
LOC: WI 07:45
PROVIDERS: ATTEND Internal Medicine
DX: Z12.31 Encounter for screening mammogram for malignant neoplasm of breast (principal)
CPT/HCPCS: 77067

== ENCOUNTER 2020-01-08 09:31 | Emergency (ER) | payer OTHER ==
[2020-01-08 10:36] LABS: ABSOLUTE BASOPHILS # (AUTO) 0.1 10^3/uL (0.0-0.2); ABSOLUTE EOSINOPHILS # (AUTO) 0.2 10^3/uL (0.0-0.6); ABSOLUTE MONOCYTES (AUTO) 0.6 10^3/uL (0.1-1.4); ABSOLUTE NEUT (AUTO) 5.7 10^3/uL (1.7-8.2); BASOPHILS % (AUTO) 0.6 % (0-2); EOSINOPHILS % (AUTO) 2.8 % (0-6); HEMATOCRIT 36.1 % (36.0-47.0); HEMOGLOBIN 12.9 g/dL (12.0-15.5); LYMPHOCYTES % (AUTO) 23.4 % (13-45); MEAN CORPUSCULAR HEMOGLOBIN 28.9 pg (27.0-33.4); MEAN CORPUSCULAR HGB CONC 35.6 g/dL (32.0-36.0); MEAN CORPUSCULAR VOLUME 81 fl (80-97); MONOCYTES % (AUTO) 7.3 % (3-13); PLATELET COUNT 353 10^3/uL (150-450); RED BLOOD COUNT 4.45 10^6/uL (3.72-5.28); RED CELL DISTRIBUTION WIDTH 13.6 % (11.5-14.0); SEGMENTED NEUTROPHILS % (AUTO) 65.9 % (42-78); TOTAL CELLS COUNTED % (AUTO) 100 %; WHITE BLOOD COUNT 8.6 10^3/uL (4.0-10.5)
[2020-01-08 10:52] LABS: ALBUMIN 4.1 g/dL (3.5-5.0); ALKALINE PHOSPHATASE 65 U/L (38-126); ANION GAP 8 (5-19); ASPARTATE AMINO TRANSFERASE 26 U/L (14-36); BILIRUBIN,TOTAL 0.2 mg/dL (0.2-1.3); BLOOD UREA NITROGEN 9 mg/dL (7-20); CALCIUM 9.4 mg/dL (8.4-10.2); CARBON DIOXIDE 23 mmol/L (22-30); CHLORIDE 107 mmol/L (98-107); CREATINE KINASE 116 U/L (30-135); GLUCOSE 142 mg/dL (75-110); POTASSIUM 4.4 mmol/L (3.6-5.0); TOTAL PROTEIN 6.8 g/dL (6.3-8.2)
--- NOTE | 2020-01-08 10:58 | RADIOLOGY REPORT (SQ) ---
EXAM DESCRIPTION: CHEST SINGLE VIEW COMPLETED DATE/TIME: 01/08/2020 10:24 am REASON FOR STUDY: BED 9 PALPITATIONS COMPARISON: 02/18/2019 EXAM PARAMETERS: NUMBER OF VIEWS: One view. TECHNIQUE: Single frontal radiographic view of the chest acquired. RADIATION DOSE: NA LIMITATIONS: None. FINDINGS: LUNGS AND PLEURA: No opacities, masses or pneumothorax. No pleural effusion. MEDIASTINUM AND HILAR STRUCTURES: No masses. Contour normal. HEART AND VASCULAR STRUCTURES: Heart normal in size. Normal vasculature. BONES: No acute findings. HARDWARE: None in the chest. OTHER: No other significant finding. IMPRESSION: NO ACUTE RADIOGRAPHIC FINDING IN THE CHEST. TECHNICAL DOCUMENTATION: JOB ID: [id number] 2010 [employer]- All Rights Reserved Reading location - IP/workstation name: [email or web address]
[2020-01-08 11:03] LABS: CREATINE KINASE MB 0.94 ng/mL (<4.55)
[2020-01-08 11:07] LABS: TROPONIN I < 0.012 ng/mL
[2020-01-08 11:47] LABS: APPEARANCE,URINE CLEAR; BILIRUBIN,URINE NEGATIVE (NEGATIVE); COLOR,URINE YELLOW; GLUCOSE, URINE NEGATIVE (NEGATIVE); KETONES,URINE NEGATIVE (NEGATIVE); LEUKOCYTE ESTERASE,URINE TRACE (NEGATIVE); NITRITE,URINE NEGATIVE (NEGATIVE); PROTEIN,URINE NEGATIVE (NEGATIVE); URINE SPECIFIC GRAVITY 1.012; UROBILINOGEN,URINE NEGATIVE mg/dL (<2.0)
[2020-01-08 11:55] LABS: URINE AMPHETAMINES SCREEN NEGATIVE; URINE BARBITURATES SCREEN NEGATIVE; URINE BENZODIAZEPINES SCREEN NEGATIVE; URINE COCAINE SCREEN NEGATIVE; URINE METHADONE SCREEN NEGATIVE; URINE PHENCYCLIDINE SCREEN NEGATIVE
[2020-01-08 11:58] LABS: URINE MARIJUANA (THC) SCREEN UNCONFIRMED POSITIVE
--- NOTE | 2020-01-08 12:30 | ER Document Report ---
ED General - General Chief Complaint: Chest Pain Stated Complaint: POSSIBLE HEART PALPITATIONS Time Seen by Provider: 01/08/20 12:11 Primary Care Provider: JEANNINE DEXTER MD [Primary Care Provider] - Follow up as needed TRAVEL OUTSIDE OF THE [place] IN LAST 30 DAYS: No - HPI Notes: Ms. Hughes is an 39-year-old female resenting with a chief complaint of intermittent sharp chest pain, palpitations and difficulty concentrating and remembering things for about 2 weeks. Patient has no known prior history of cardiac disease stroke or TIA. No focal neurologic symptoms. No headache. No shortness of breath. No history of thromboembolic disease. History of intermittent palpitations in the past. She consumes several cups coffee a day. Presently smoking about 1 pack cigarettes per day. Patient's pain is described as fleeting lasting for few seconds at a time over left anterior chest area radiating into the left side of neck anteriorly. Aggravated by movement and certain positions. History of chronic pain syndrome related to old neck injury. She sees pain management clinic intermittently. Patient says she has a past history of panic attacks. Not currently on treat ment for this. She is having some insomnia. She reports some stress at work. Patient denies any abuse of alcohol or use of drugs. She specifically denies use of cocaine. She is a smoker. Patient has a history of diabetes mellitus type 2 and her last hemoglobin A1c was less than 7. [facility] She has a history of hypertension and hyperlipidemia. Both parents have a history of coronary disease. HEART Score: HISTORY 0 ECG 0 AGE 0 RISK FACTORS 3 TROPONIN 0 TOTAL: 3 If HEART score is = 3 AND both tronponin measurments are normal, the 30 day risk of a major adverse cardiac event (all-cause mortality, myocardia infarction or need for coronary revscularization) is < 1% (Sensitivity 100%, NPV 100%). PERC SCORE negative Current medications include gabapentin 300 mg twice daily glimepiride 400 mg daily atorvastatin 20 mg daily metoprolol 50 mg daily losartan hydrochlorothiazide 19421 0.5 daily and metformin 500 mg twice daily. - Related Data Allergies/Adverse Reactions: codeine [Codeine] Allergy (Verified 01/08/20 10:01) Sulfa (Sulfonamide Antibiotics) Allergy (Verified 01/08/20 10:01) Past Medical History - General Information source: Patient - Social History Smoking Status: Current Every Day Smoker Family History: Reviewed & Not Pertinent, Arthritis, CAD, COPD, CVA, DM, Hyperlipidemia, Hypertension, Malignancy, Thyroid Disfunction, Other Patient has suicidal ideation: No Patient has homicidal ideation: No - Past Medical History Cardiac Medical History: Reports: Hx Hypertension Denies: Hx Heart Attack Pulmonary Medical History: Denies: Hx Asthma, Hx Bronchitis, Hx COPD, Hx Pneumonia, Hx Tuberculosis Neurological Medical History: Reports: Hx Migraine. Denies: Hx Seizures Endocrine Medical History: Reports: Hx Diabetes Mellitus Type 2 Renal/ Medical History: Reports: Hx Ectopic , Hx Kidney Stones, Hx Ovarian Cysts. Denies: Hx Peritoneal Dialysis GI Medical History: Reports: Hx Colonoscopy Musculoskeletal Medical History: Reports Hx Arthritis, Reports Hx Musculoskeletal Trauma Psychiatric Medical History: Reports: Hx Anxiety Past Surgical History: Reports: Hx Section, Hx Oral Surgery - wisdom teeth, Hx Tubal Ligation. Denies: Hx Hysterectomy - Immunizations Immunizations up to date: Yes Hx Diphtheria, Pertussis, Tetanus Vaccination: Yes Review of Systems - Review of Systems Notes: Constitutional: Negative for fever. HENT: Negative for sore throat. Eyes: Negative for visual changes. Cardiovascular: As per HPI. Respiratory: Negative for shortness of breath. Gastrointestinal: Negative for abdominal pain, vomiting or diarrhea. Genitourinary: Negative for dysuria. Musculoskeletal: Negative for back pain. Skin: Negative for rash. Neurological: Difficulty concentrating and forgetfulness. Psychiatric: Moderate insomnia. 10 point ROS negative except as marked above and in HPI. Physical Exam - Vital signs Vitals: Pulse Ox 100 01/08/20 09:52 - Notes Notes: GENERAL: Well-developed well-nourished appearing in no acute distress. SKIN: Good turgor no rashes. HEAD: Normocephalic atraumatic. EYES: PERRLA. EOMI. Conjunctivae and sclerae clear. EARS: CANALS AND TMS CLEAR. NOSE: CLEAR. MOUTH: Moist mucosa. Good dentition. No stridor or edema. No drooling. NECK: Supple. No masses or thyromegaly. No adenopathy. Carotids 2+ without br uits. No JVD. BACK: Symmetrical without tenderness. CHEST: Tenderness of anterior chest wall that exactly reproduces her discomfort. Respirations unlabored. Few scattered wheezes bilaterally that clear with cough l. HEART: Regular rhythm. No murmur gallop or rub. ABDOMEN: Soft nontender without masses, organomegaly or rebound. Bowel sounds normally active. No bruits. GENITALIA: Deferred. EXTREMITIES: No edema. No calf tenderness. Cap refill less than 1.5 seconds. Dorsalis pedis and posterior tibial pulses 3+ and symmetrical. NEUROLOGICAL: GCS 15. Alert and oriented x3. Normal gait. Fluent speech. Cranial nerves II through XII intact. Sensorimotor and cerebellar normal. Normal tone. PSYCHIATRIC: Flat affect. Course - Re-evaluation Re-evalutation: 01/08/20 12:35 This appears to be a low risk patient based on heart score and I think she is very stable for outpatient follow-up. Her discomfort is atypical and reproducible with palpation of the chest area. She appears to have an element of depression and anxiety and also some chronic pain syndrome. Her troponin is negative here and her symptoms have been going on for a couple of weeks. She definitely has risk factors and will need further outpatient work-up. I have encouraged her to stop smoking and we will treat her discomfort with NSAID as I feel this is likely of musculoskeletal origin. She may also have significant element of depression here and I encouraged her to follow-up on this with her primary care doctor this week. I provided her a work note for the next 3 days. - Vital Signs Vital signs: Temp Pulse Resp BP Pulse Ox 98.4 F 15 131/91 H 97 01/08/20 10:01 01/08/20 10:01 01/08/20 10:01 01/08/20 10:01 - Laboratory Result Diagrams: 01/08/20 10:05 01/08/20 10:05 Laboratory results interpreted by me: 01/08/20 01/08/20 10:05 10:35 Glucose 142 H Urine Blood LARGE H Ur Leukocyte Esterase TRACE H - Diagnostic Test Radiology reviewed: Reports reviewed - Per radiologist normal chest x-ray. - EKG Interpretation by Me Additional EKG results interpreted by me: 01/08/20 12:35 Twelve-lead EKG from 0935 hrs. reviewed contemporaneously by me demonstrating normal sinus rhythm with rate of 75 normal intervals and normal QRS axis of 23 degrees. There are no acute ST/T wave changes. Discharge - Discharge Clinical Impression: Chest pain Qualifiers: Chest pain type: unspecified Qualified Code(s): R07.9 - Chest pain, unspecified Condition: Stable Disposition: HOME, SELF-CARE Instructions: Chest Pain of Unclear Cause ([facility]) Forms: Smoking Cessation Education, Return to Work Referrals: JEANNINE DEXTER MD [Primary Care Provider] - Follow up as needed
[2020-01-08 12:49] VITALS: BP 139/85
--- NOTE | 2020-01-08 13:04 | EKG REPORT ---
SEVERITY:- NORMAL ECG - SINUS RHYTHM : Confirmed by: Luis Alfredo Contreras MD 08-Jan-2020 13:03:57
== END 2020-01-08 12:45 | disposition home or self-care (01) ==
LOC: ER 09:31
DX: R07.9 Chest pain, unspecified (principal); R00.2 Palpitations; F17.210 Nicotine dependence, cigarettes, uncomplicated; I10 Essential (primary) hypertension; E11.9 Type 2 diabetes mellitus without complications; Z87.442 Personal history of urinary calculi; Z98.51 Tubal ligation status
CPT/HCPCS: 36415; 71045; 80053; 80307; 81001; 82550; 82553; 84484; 85025; 93005; 93010